=== PATIENT | female | born 1995 | race American Indian/Alaskan Native ===

== ENCOUNTER 2018-02-17 16:01 | Inpatient (IN) | payer MEDICAID ==
[2018-02-17] MEDS ORDERED: LACTATED RINGERS 1,000 ML IV ONE (22:17)
[2018-02-17] MEDS ORDERED: MINERAL OIL PO PRN (23:35)
[2018-02-17] MEDS ORDERED: SUBLIMAZE IV PRN (23:35)
[2018-02-17] MEDS ORDERED: STADOL IV PRN (23:35)
[2018-02-17] MEDS ORDERED: XYLOCAINE 2% INFILTRATI ONE (23:35)
[2018-02-17] MEDS ORDERED: BRETHINE IVP PRN (23:35)
[2018-02-17] MEDS ORDERED: ZOFRAN IV PRN (23:35)
[2018-02-17] MEDS ORDERED: BRETHINE SUB-Q PRN (23:35)
[2018-02-17] MEDS ORDERED: POLYCILLIN/NS 2 GM/100 ML 2 GM/100 ML BAG IV ONE (23:35)
--- NOTE | 2018-02-17 23:44 | History and Physical Report ---
History of Present Illness Date of examination: 02/17/18 Date of admission: 02/17/18 20:00 Chief complaint: SROM History of present illness: Pt is a 22yo BF EDC 02/12/18; EGA 40 5/7 weeks presents to L&D complaining of SROM meconium fluid @ 10am followed by irregular contractions. She did not receive care with this , but seems to have a Psychotic disorder that is untreated. Past History Past Medical History: no pertinent history Past Surgical History: no surgical history Family/Genetic History: none Social history: no significant social history, single - Obstetrical History Expected Date of Delivery: 02/12/18 Actual Gestation: 40 Week(s) 6 Day(s) : 1 Medications and Allergies Allergies Allergy/AdvReac Type Severity Reaction Status Date / Time No Known Allergies Allergy Unverified 02/17/18 16:20 Review of Systems All systems: negative - Vital Signs Vital signs: Vital Signs Pulse Pulse Ox 100 H 100 02/17/18 16:37 02/17/18 16:37 Temp Pulse Resp BP Pulse Ox 97.3 F L 83 18 112/60 100 02/17/18 23:29 02/17/18 23:38 02/17/18 23:29 02/17/18 23:13 02/17/18 23:38 - Physical Exam Breasts: Positive: deferred Cardiovascular: Regular rate Lungs: Positive: Clear to auscultation Abdomen: Positive: normal appearance Uterus: Positive: enlarged Extremities: Positive: normal - Obstetrical FHR: category 1 Uterine Contraction Monitor Mode: External Results Result Diagrams: 02/18/18 00:50 All other labs normal. Assessment and Plan - Patient Problems (1) 40 weeks gestation of Onset Date: 02/17/18 Current Visit: Yes Status: Acute Plan to address problem: A: IUP @ 40 5/7 weeks in labor No care Unknown GBS Psychotic disorder P: Admit to L&D for expectant vaginal delivery Obtain labs IV Ampicillin Obtain Psych consultation
[2018-02-17] MEDS ORDERED: LACTATED RINGERS 1,000 ML IV SCH (23:45)
[2018-02-17] MEDS ORDERED: PITOCin/NS 20 UNIT/1000ML DRIP 20 UNITS/1,000 ML BAG IV SCH (23:45)
[2018-02-17] MEDS ORDERED: PITOCin/NS 30 UNIT/500ML 30 UNITS/500 ML BAG IV SCH ×2 (23:45)
[2018-02-18 01:14] LABS: Hematocrit 28.9 % (30.3-42.9); Hemoglobin 9.2 gm/dl (10.1-14.3); Mean Corpuscular HGB Conc 32 % (30-34); Mean Corpuscular Volume 79 fl (79-97); Platelet Count 269 K/mm3 (140-440); Red Blood Count 3.68 M/mm3 (3.65-5.03); Red Cell Distribution Width 15.6 % (13.2-15.2)
[2018-02-18 01:16] LABS: Mean Corpuscular Hemoglobin 25 pg (28-32)
[2018-02-18 01:38] LABS: Hepatitis C Virus Antibody Non-Reactive (NonReactive)
[2018-02-18 02:16] LABS: Rubella IgG Antibody Immune (Immune)
[2018-02-18 02:23] LABS: Anisocytosis Few; Basophils % (Manual) 0 % (0.0-1.8); Eosinophils % (Manual) 0 % (0.0-4.3); Hypochromasia 1+; Platelet Estimate Consistent w Auto; Total Cells Counted 100
[2018-02-18] MEDS ORDERED: XYLOCAINE MPF 2% ONE ×6 (03:32→03:35)
[2018-02-18] MEDS ORDERED: XYLOCAINE 2% INFILTRATI ONE (03:32)
[2018-02-18] MEDS ORDERED: AMPICILLIN/NS 1 GM/50 ML 1 GM/50 ML BAG IV SCH (03:37)
--- NOTE | 2018-02-18 03:49 | Procedure Note ---
OB Delivery Note - Delivery Date of Delivery: 02/18/18 Surgeon: TIAGO ALEXANDER Estimated blood loss: other (150cc) - Vaginal Delivery presentation: vertex Delivery position: OA Intrapartum events: no care, PROM->1hr before delivery, meconium Delivery induction: none Delivery augmentation: rupture of membranes Delivery monitor: external FHT, external uterine Route of delivery: vacuum extraction Indicators for instrumentation: maternal exhaustion Delivery placenta: spontaneous Delivery cord: 3 umbilical vessels Episiotomy: none Delivery laceration: 2nd degree Delivery repair: vicryl Anesthesia: none Delivery comments: Infant delivered OA with the aid of a vacuum, 3 pulls, 1 pop-off. Infant handed to awaiting Peds/RT in attendance. Cord cut by GrandMa. - Infant A at 1 minute: 8 at 5 minutes: 9 Infant Gender: Male (3547gms)
[2018-02-18] MEDS ORDERED: LANSINOH TP PRN (03:50)
[2018-02-18] MEDS ORDERED: TYLENOL PO PRN (03:50)
[2018-02-18] MEDS ORDERED: PHENERGAN PR PRN (03:50)
[2018-02-18] MEDS ORDERED: PHENERGAN PO PRN (03:50)
[2018-02-18] MEDS ORDERED: DULCOLAX PR PRN (03:50)
[2018-02-18] MEDS ORDERED: NORCO 5/325 PO PRN (03:50)
[2018-02-18] MEDS ORDERED: TUCKS PAD TP PRN (03:50)
[2018-02-18] MEDS ORDERED: MILK OF MAGNESIA PO PRN (03:50)
[2018-02-18] MEDS ORDERED: ZOFRAN IV PRN (03:50)
[2018-02-18] MEDS ORDERED: BENADRYL PO PRN (03:50)
[2018-02-18] MEDS ORDERED: PITOCin/NS 20 UNIT/1000ML DRIP 20 UNITS/1,000 ML BAG IV SCH (04:00)
[2018-02-18] MEDS ORDERED: SODIUM CHLORIDE FLUSH SYRINGE 10 ML IV NR (04:00)
[2018-02-18] MEDS: ATIVAN IV PRN ×2 (05:05→06:15)
[2018-02-18] MEDS: MOTRIN PO SCH ×2 (06:36→18:05)
[2018-02-18 16:14] LABS: Hematocrit 22.6 % (30.3-42.9); Hemoglobin 7.3 gm/dl (10.1-14.3)
[2018-02-18] MEDS: FEOSOL PO SCH (17:47)
[2018-02-18] MEDS: PRENATAL VITAMIN PO SCH (17:47)
[2018-02-18] MEDS: COLACE PO SCH (17:47)
[2018-02-18 19:09] LABS: Bilirubin,Urine NEG (Negative); Blood,Urine LG (Negative); Color,Urine Yellow (Yellow); Mucus,Urine FEW /HPF; Protein,Urine <15 mg/dL mg/dL (Negative); Urobilinogen,Urine < 2.0 mg/dL (<2.0)
[2018-02-18 19:12] LABS: Amphetamine Screen,Urine PRESUMPTIVE NEGATIVE; Benzodiazepines Screen,Urine PRESUMPTIVE NEGATIVE; Cannabinoid Screen,Urine PRESUMPTIVE NEGATIVE; Cocaine Screen,Urine PRESUMPTIVE NEGATIVE; Methadone Screen,Urine PRESUMPTIVE NEGATIVE; Opiate Screen,Urine PRESUMPTIVE NEGATIVE
[2018-02-19] MEDS: MOTRIN PO SCH ×3 (02:13→17:47)
[2018-02-19] MEDS ORDERED: BOOSTRIX IM ONE (06:00)
[2018-02-19] MEDS ORDERED: M-M-R II VACCINE SUB-Q ONE (06:00)
--- NOTE | 2018-02-19 06:57 | Progress Note ---
Assessment and Plan - Patient Problems (1) 40 weeks gestation of Onset Date: 02/17/18 Current Visit: Yes Status: Resolved (2) (normal spontaneous vaginal delivery) Onset Date: 02/19/18 Current Visit: Yes Status: Resolved Plan to address problem: A: S/P - PPD #1 Doing well Asymptomatic anemia - stable P: Awaiting Psych consultation Subjective - Subjective Date of service: 02/19/18 Principal diagnosis: s/p - PPD #1 Interval history: Pt is feeling well without complaints. Bleeding improved. Patient reports: appetite normal, voiding normally, pain well controlled, flatus , ambulating normally, no dizzy ambulation, no nauseated : doing well, bottle feeding Objective - Vital Signs Latest vital signs: Vital Signs Temp Pulse Resp BP BP Pulse Ox 02/19/18 02:13 18 02/19/18 00:28 97.3 F L 69 18 97/57 99 02/18/18 17:39 98.2 F 91 H 20 104/65 02/18/18 09:25 97.5 F L 100 H 18 - Exam Breasts: Present: deferred Cardiovascular: Present: Regular rate Lungs: Present: Clear to auscultation Abdomen: Present: normal appearance, soft Uterus: Present: normal, firm, fundal height below umbilicus Extremities: Present: normal - Labs Labs: Abnormal lab results 02/18/18 02/18/18 Range/Units 15:53 18:39 Hgb 7.3 L (10.1-14.3) gm/dl Hct 22.6 L D (30.3-42.9) % Urine WBC (Auto) 30.0 H (0.0-6.0) /HPF Laboratory Tests 02/17/18 02/18/18 02/18/18 00:50 00:50 00:50 WBC 16.0 H RBC 3.68 Hgb 9.2 L Hct 28.9 L MCV 79 MCH 25 L MCHC 32 RDW 15.6 H Plt Count 269 Add Manual Diff Complete Total Counted 100 Seg Neuts % (Manual) 96.0 H Band Neutrophils % 0 Lymphocytes % (Manual) 2.0 L Reactive Lymphs % (Man) 0 Monocytes % (Manual) 2.0 Eosinophils % (Manual) 0 Basophils % (Manual) 0 Metamyelocytes % 0 Myelocytes % 0 Promyelocytes % 0 Blast Cells % 0 Nucleated RBC % Not Reportable Seg Neutrophils # Man 15.4 H Band Neutrophils # 0.0 Lymphocytes # (Manual) 0.3 L Abs React Lymphs (Man) 0.0 Monocytes # (Manual) 0.3 Eosinophils # (Manual) 0.0 Basophils # (Manual) 0.0 Metamyelocytes # 0.0 Myelocytes # 0.0 Promyelocytes # 0.0 Blast Cells # 0.0 WBC Morphology Not Reportable Hypersegmented Neuts Not Reportable Hyposegmented Neuts Not Reportable Hypogranular Neuts Not Reportable Smudge Cells Not Reportable Toxic Granulation Not Reportable Toxic Vacuolation Not Reportable Dohle Bodies Not Reportable Pelger-Huet Anomaly Not Reportable Jarrod Rods Not Reportable Platelet Estimate Consistent w auto Clumped Platelets Not Reportable Plt Clumps, EDTA Not Reportable Large Platelets Not Reportable Giant Platelets Not Reportable Platelet Satelliting Not Reportable Plt Morphology Comment Not Reportable RBC Morphology Not Reportable Dimorphic RBCs Not Reportable Polychromasia Not Reportable Hypochromasia 1+ Poikilocytosis Not Reportable Anisocytosis Few Microcytosis Few Macrocytosis Not Reportable Spherocytes Not Reportable Pappenheimer Bodies Not Reportable Sickle Cells Not Reportable Target Cells Not Reportable Tear Drop Cells Not Reportable Ovalocytes Not Reportable Helmet Cells Not Reportable [place] Bodies Not Reportable [place] Rings Not Reportable [place] Cells Not Reportable Bite Cells Not Reportable Crenated Cell Not Reportable Elliptocytes Not Reportable Acanthocytes (Spur) Not Reportable Rouleaux Not Reportable Hemoglobin C Crystals Not Reportable Schistocytes Not Reportable Malaria parasites Not Reportable Sickle Cell Screen Negative Justen Bodies Not Reportable Hem Pathologist Commnt No Urine Color Urine Turbidity Urine pH Ur Specific [place] Urine Protein Urine Glucose (UA) Urine Ketones Urine Blood Urine Nitrite Urine Bilirubin Urine Urobilinogen Ur Leukocyte Esterase Urine WBC (Auto) Urine RBC (Auto) U Epithel Cells (Auto) Urine Mucus Urine Opiates Screen Urine Methadone Screen Ur Barbiturates Screen Ur Phencyclidine Scrn Ur Amphetamines Screen U Benzodiazepines Scrn Urine Cocaine Screen U Marijuana (THC) Screen Drugs of Abuse Note RPR Hep Bs Antigen Hepatitis C Antibody Non-reactive HIV 1&2 Antibody Rapid Non react HIV P24 Antigen Non react Rubella IgG Antibody Immune Blood Type Antibody Screen 02/18/18 02/18/18 02/18/18 00:50 00:50 00:50 WBC RBC Hgb Hct MCV MCH MCHC RDW Plt Count Add Manual Diff Total Counted Seg Neuts % (Manual) Band Neutrophils % Lymphocytes % (Manual) Reactive Lymphs % (Man) Monocytes % (Manual) Eosinophils % (Manual) Basophils % (Manual) Metamyelocytes % Myelocytes % Promyelocytes % Blast Cells % Nucleated RBC % Seg Neutrophils # Man Band Neutrophils # Lymphocytes # (Manual) Abs React Lymphs (Man) Monocytes # (Manual) Eosinophils # (Manual) Basophils # (Manual) Metamyelocytes # Myelocytes # Promyelocytes # Blast Cells # WBC Morphology Hypersegmented Neuts Hyposegmented Neuts Hypogranular Neuts Smudge Cells Toxic Granulation Toxic Vacuolation Dohle Bodies Pelger-Huet Anomaly Jarrod Rods Platelet Estimate Clumped Platelets Plt Clumps, EDTA Large Platelets Giant Platelets Platelet Satelliting Plt Morphology Comment RBC Morphology Dimorphic RBCs Polychromasia Hypochromasia Poikilocytosis Anisocytosis Microcytosis Macrocytosis Spherocytes Pappenheimer Bodies Sickle Cells Target Cells Tear Drop Cells Ovalocytes Helmet Cells [place] Bodies [place] Rings Aayush Cells Bite Cells Crenated Cell Elliptocytes Acanthocytes (Spur) Rouleaux Hemoglobin C Crystals Schistocytes Malaria parasites Sickle Cell Screen Justen Bodies Hem Pathologist Commnt Urine Color Urine Turbidity Urine pH Ur Specific [place] Urine Protein Urine Glucose (UA) Urine Ketones Urine Blood Urine Nitrite Urine Bilirubin Urine Urobilinogen Ur Leukocyte Esterase Urine WBC (Auto) Urine RBC (Auto) U Epithel Cells (Auto) Urine Mucus Urine Opiates Screen Urine Methadone Screen Ur Barbiturates Screen Ur Phencyclidine Scrn Ur Amphetamines Screen U Benzodiazepines Scrn Urine Cocaine Screen U Marijuana (THC) Screen Drugs of Abuse Note RPR Nonreactive Hep Bs Antigen Non-reactive Hepatitis C Antibody HIV 1&2 Antibody Rapid HIV P24 Antigen Rubella IgG Antibody Blood Type A POSITIVE Antibody Screen Negative 02/18/18 02/18/18 02/18/18 15:53 18:11 18:39 WBC RBC Hgb 7.3 L Hct 22.6 L D MCV MCH MCHC RDW Plt Count Add Manual Diff Total Counted Seg Neuts % (Manual) Band Neutrophils % Lymphocytes % (Manual) Reactive Lymphs % (Man) Monocytes % (Manual) Eosinophils % (Manual) Basophils % (Manual) Metamyelocytes % Myelocytes % Promyelocytes % Blast Cells % Nucleated RBC % Seg Neutrophils # Man Band Neutrophils # Lymphocytes # (Manual) Abs React Lymphs (Man) Monocytes # (Manual) Eosinophils # (Manual) Basophils # (Manual) Metamyelocytes # Myelocytes # Promyelocytes # Blast Cells # WBC Morphology Hypersegmented Neuts Hyposegmented Neuts Hypogranular Neuts Smudge Cells Toxic Granulation Toxic Vacuolation Dohle Bodies Pelger-Huet Anomaly Jarrod Rods Platelet Estimate Clumped Platelets Plt Clumps, EDTA Large Platelets Giant Platelets Platelet Satelliting Plt Morphology Comment RBC Morphology Dimorphic RBCs Polychromasia Hypochromasia Poikilocytosis Anisocytosis Microcytosis Macrocytosis Spherocytes Pappenheimer Bodies Sickle Cells Target Cells Tear Drop Cells Ovalocytes Helmet Cells [place] Bodies [place] Rings Aayush Cells Bite Cells Crenated Cell Elliptocytes Acanthocytes (Spur) Rouleaux Hemoglobin C Crystals Schistocytes Malaria parasites Sickle Cell Screen Justen Bodies Hem Pathologist Commnt Urine Color Yellow Urine Turbidity Clear Urine pH 6.0 Ur Specific [place] 1.009 Urine Protein <15 mg/dl Urine Glucose (UA) Neg Urine Ketones Neg Urine Blood Lg Urine Nitrite Neg Urine Bilirubin Neg Urine Urobilinogen < 2.0 Ur Leukocyte Esterase Mod Urine WBC (Auto) 30.0 H Urine RBC (Auto) 0.0 U Epithel Cells (Auto) 1.0 Urine Mucus Few Urine Opiates Screen Presumptive negative Urine Methadone Screen Presumptive negative Ur Barbiturates Screen Presumptive negative Ur Phencyclidine Scrn Presumptive negative Ur Amphetamines Screen Presumptive negative U Benzodiazepines Scrn Presumptive negative Urine Cocaine Screen Presumptive negative U Marijuana (THC) Screen Presumptive negative Drugs of Abuse Note Disclamer RPR Hep Bs Antigen Hepatitis C Antibody HIV 1&2 Antibody Rapid HIV P24 Antigen Rubella IgG Antibody Blood Type Antibody Screen
[2018-02-19] MEDS: COLACE PO SCH (12:14)
[2018-02-19] MEDS: FEOSOL PO SCH (12:15)
[2018-02-19] MEDS: PRENATAL VITAMIN PO SCH (12:15)
[2018-02-19] MEDS ORDERED: DERMOPLAST TP ONE (13:13)
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
--- NOTE | 2018-02-20 11:20 | Progress Note ---
Assessment and Plan - Patient Problems (1) 40 weeks gestation of Onset Date: 02/17/18 Current Visit: Yes Status: Resolved Plan to address problem: A: S/P - PPD #2 Doing well Asymptomatic anemia - stable Unspecified psychosis - per Psych P: Medically cleared for transfer to a Psychiatric facility (2) Psychosis Onset Date: 02/20/18 Current Visit: Yes Status: Acute Qualifiers: Psychosis type: unspecified psychosis type Qualified Code(s): F29 - Unspecified psychosis not due to a substance or known physiological condition Plan to address problem: A: S/P - PPD #2 Doing well Asymptomatic anemia - stable Unspecified psychosis - per Psych P: Medically cleared for transfer to a Psychiatric facility Subjective - Subjective Date of service: 02/20/18 Principal diagnosis: s/p - PPD #2 Interval history: Pt is feeling well without complaints. Patient reports: appetite normal, voiding normally, pain well controlled, flatus , ambulating normally, no dizzy ambulation, no nauseated : doing well, bottle feeding Objective - Vital Signs Latest vital signs: Vital Signs Temp Pulse Resp BP BP Pulse Ox 02/20/18 07:56 98.4 F 73 18 95/48 99 02/20/18 01:48 97.9 F 63 18 100/55 100 02/19/18 16:56 97.9 F 69 18 93/50 Intake and Output 02/19/18 02/20/18 02/20/18 22:59 06:59 14:59 Intake Total 120 360 480 Output Total 3 Balance 120 357 480 Intake: Oral 120 360 Intake, Free Water 360 120 Output: Urine 3 Void 3 Other: Total, Intake Amount 120 360 Total, Output Amount 3 # Voids Void 0 # Bowel Movements 0 - Exam Breasts: Present: deferred Cardiovascular: Present: Regular rate Lungs: Present: Clear to auscultation Abdomen: Present: normal appearance, soft Uterus: Present: normal, firm, fundal height below umbilicus Extremities: Present: normal
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
[2018-02-20] MEDS: PRENATAL VITAMIN PO SCH (12:14)
[2018-02-20] MEDS: COLACE PO SCH ×2 (12:14→21:40)
[2018-02-20] MEDS: FEOSOL PO SCH ×2 (12:14→21:40)
[2018-02-20] MEDS: MOTRIN PO SCH ×2 (12:15→19:45)
--- NOTE | 2018-02-20 20:22 | Progress Note ---
Subjective - Reason for Consult Consult date: 02/20/18 Reason for consult: Psychiatric Follow-up Evaluation - Chief Complaint Chief complaint: " I'm good" 22yo BF EDC 02/12/18. Psychiatry was consulted to see patient because of psychosis. Today the patient is calm and cooperative with a blunted affect during the assessment. She presents guarded and evasive. She states, " I'm good. It was a lot going on. I wasn't expecting to have the baby." Patient reports that her symptoms were all related to giving . She appears as if she is minimizing her symptoms. She denies SI/HI's, A/VH's, and delusions. Per sitter patient behavior has been appropriate. Patient is refusing medications. She states, " I don't plan on taking any medication. Nothing is wrong with me. More than likely, I'm going to breast feed." Mental Status Exam - Vital signs Last Vital Signs Temp 98.5 F 02/20/18 16:35 Pulse 78 02/20/18 16:35 Resp 18 02/20/18 16:35 BP 99/44 02/20/18 16:35 Pulse Ox 100 02/20/18 16:35 - Exam Narrative exam: Mental Status Exam General Appearance: Causally Dressed-hospital gown Eye Contact: Intermittent Orientation: Alert and oriented x 4 (person, place, time, date, and situation) Attitude/Behavior: Cooperative, evasive, guarded Sensorium: Distracted Psychomotor & Musculoskeletal Activity: Ambulating Mood: "I'm good" Affect: Constricted Speech/Language: Normal rate and tone Thought Processes: Disorganized, blocking-less Thought Content: Impoverished; paranoid delusions (?) Perception: Patient denies A/V/T hallucinations Concentration/Attention: Impaired Suicidal Ideations/Plan: Patient denies. Homicidal Ideations/Plan: Patient denies. Judgment: Variable Insight: Variable to poor Assessment and Plan Impression: Unspecified Psychosis. Today the patient is calm and cooperative with a blunted affect during the assessment. UDS is negative. Appears to minimizing psychosis. DDx: Bipolar DO with psychosis, R/O Schizophrenia Recommendation/Plan: 1. Continue 1013 and gather collateral information to help determine proper treatment. 2. Once the patient is medically clear, placement for inpatient psy services will be initiated. 3. Patient educated on the risks/benefits of medications. Patient refuses medications.
[2018-02-21] MEDS: MOTRIN PO SCH ×3 (11:08→23:12)
[2018-02-21] MEDS: COLACE PO SCH ×2 (11:09→23:09)
[2018-02-21] MEDS: PRENATAL VITAMIN PO SCH (11:09)
[2018-02-21] MEDS: FEOSOL PO SCH ×2 (11:09→23:09)
--- NOTE | 2018-02-21 23:41 | Progress Note ---
Subjective - Reason for Consult Consult date: 02/21/18 Reason for consult: Psychiatric Follow-up Evaluation - Chief Complaint Chief complaint: " I'm good" 22yo BF EDC 02/12/18. Psychiatry was consulted to see patient because of psychosis. Today the patient is calm and cooperative during the assessment. Affect is somewhat inappropriate. Seen laughing/smiling inappropriately. She continues to present guarded and evasive. She appears as if she is minimizing her symptoms. She denies SI/HI's, A/VH's, and delusions. Per sitter patient behavior has been appropriate. Patient has agreed to take Risperdal. She states , " I will take the medication if it will help me." Mental Status Exam - Vital signs Last Vital Signs Temp 98.6 F 02/21/18 21:23 Pulse 69 02/21/18 21:23 Resp 16 02/21/18 21:23 BP 96/46 02/21/18 21:23 Pulse Ox 99 02/21/18 21:23 - Exam Narrative exam: Mental Status Exam General Appearance: Causally Dressed-hospital gown Eye Contact: Intermittent Orientation: Alert and oriented x 4 (person, place, time, date, and situation) Attitude/Behavior: Cooperative, evasive, guarded Sensorium: Distracted Psychomotor & Musculoskeletal Activity: Laying in bed Mood: "I'm good" Affect: Constricted Speech/Language: Normal rate and tone Thought Processes: Circumstantial Thought Content: Impoverished; Patient denies delusions Perception: Patient denies A/V/T hallucinations Concentration/Attention: Impaired Suicidal Ideations/Plan: Patient denies Homicidal Ideations/Plan: Patient denies Judgment: Variable Insight: Variable Assessment and Plan Impression: Unspecified Psychosis. Today the patient is calm and cooperative during the assessment. Appears to be laughing/smiling inappropriately. UDS is negative. Appears to minimizing psychosis. DDx: Bipolar DO with psychosis, R/O Schizophrenia Recommendation/Plan: 1. Reassess in 24 hours. Patient 1013 was rescinded by . 2. Start Risperdal 0.5mg po BID mood/psychosis. Discussed the metabolic side effects of Risperdal. 3. Patient educated on the risks/benefits of medications. Patient verbalizes full understanding. 4. Will continue to monitor psychosis, mood, sleep, appetite, compliance, and side effects.
[2018-02-22] MEDS: MOTRIN PO SCH ×2 (05:00→12:24)
[2018-02-22] MEDS ORDERED: BOOSTRIX IM ONE (06:00)
[2018-02-22] MEDS ORDERED: RisperDAL PO SCH (10:00)
[2018-02-22] MEDS: PRENATAL VITAMIN PO SCH (10:01)
[2018-02-22] MEDS: FEOSOL PO SCH (10:01)
[2018-02-22] MEDS: COLACE PO SCH (10:02)
--- NOTE | 2018-02-22 10:12 | Progress Note ---
Subjective - Reason for Consult Consult date: 02/22/18 Reason for consult: Psychiatry Follow-up - Chief Complaint Chief complaint: "I am okay" 22yo BF EDC 02/12/18. Psychiatry was consulted to see patient because of psychosis. Today the patient is calm and cooperative, but tangent during the assessment. She had to be redirected several times to keep her on topic. The patient was asked about her day, her answer was not logical. Per the notes the patient had an episode and security had to be called. Per collateral information from her mother Meghann Marie at [phone], she stated that her daughter's behavior has been erratic the past several months. She stated that the patient's sleep pattern have been off with an irritable mood. She stated that the patient have "walked off" several jobs for no reason. The patient was asked about these things, but she struggled to elaborate. The patient denies SI/ HI's and AVH's. Mental Status Exam - Vital signs Last Vital Signs Temp 98.4 F 02/22/18 08:35 Pulse 81 02/22/18 08:35 Resp 20 02/22/18 08:35 BP 97/64 02/22/18 08:35 Pulse Ox 100 02/22/18 08:35 - Exam Narrative exam: MSE: Appearance: calm, cooperative Behavior: regular eye contact Speech: regular rate and tone Mood: "okay" Affect: blunted Thought Process: tangential, disorganized Thought Content: denies SI/HI's and AVH's, paranoid Motor Activity: ambulatory Cognition: A/O x 3 Insight: poor Judgment: poor Assessment and Plan Impression: Unspecified Psychosis. Today the patient is calm and cooperative during the assessment. The patient is experiencing perceptual disturbances. UDS is negative. DDx: Bipolar DO with psychosis, R/O Schizophrenia Recommendation/Plan: Continue 1013 with placement to inpatient psy services. Continue Risperdal 0.5 mg PO BID for psychosis. Discussed possible metabolic side effects of Risperdal with the patient.
[2018-02-22 15:52] LABS: BUN/Creatinine Ratio 15; Blood Urea Nitrogen 9 mg/dL (7-17); Calcium 8.8 mg/dL (8.4-10.2); Hemolysis Index 14
[2018-02-22 19:49] VITALS: BP 107/49
== END 2018-02-22 17:02 | DRG 775 ==
LOC: TRG 16:01 → LD 20:00 → EEVIPCON 20:00 → LD 22:11 → OB 02-18 06:00
PROVIDERS: ADMIT Obstetrics & Gynecology; ATTEND Obstetrics & Gynecology
PROC: 10D07Z6 Extraction of Products of Conception, Vacuum, Via Natural or Artificial Opening (ICD-10-PCS; principal; 2018-02-18)
PROC: 0KQM0ZZ Repair Perineum Muscle, Open Approach (ICD-10-PCS; 2018-02-18)
PROC: 3E0234Z Introduction of Serum, Toxoid and Vaccine into Muscle, Percutaneous Approach (ICD-10-PCS; 2018-02-19)
DX: O77.0 Labor and delivery complicated by meconium in amniotic fluid (principal); Z3A.40 40 weeks gestation of pregnancy; Z37.0 Single live birth; Z23 Encounter for immunization; O99.344 Other mental disorders complicating childbirth; F29 Unspecified psychosis not due to a substance or known physiological condition; O70.1 Second degree perineal laceration during delivery; O90.81 Anemia of the puerperium; D64.9 Anemia, unspecified; O75.81 Maternal exhaustion complicating labor and delivery
CPT/HCPCS: 36415; 80048; 80307; 81001; 85007; 85014; 85018; 85025; 85660; 86592; 86706; 86762; 86803; 86850; 86900; 86901; 87806; J0290; J2060; J2590; J7120

== ENCOUNTER 2018-02-25 17:43 | Emergency (ER) | payer MEDICAID ==
[2018-02-25 20:03] LABS: Basophils % (Auto) 0.4 % (0.0-1.8); Eosinophils # (Auto) 0.1 K/mm3 (0.0-0.4); Eosinophils % (Auto) 1.4 % (0.0-4.3); Hematocrit 29.9 % (30.3-42.9); Hemoglobin 9.5 gm/dl (10.1-14.3); Lymphocytes # (Auto) 1.5 K/mm3 (1.2-5.4); Lymphocytes % (Auto) 19.9 % (13.4-35.0); Mean Corpuscular HGB Conc 32 % (30-34); Mean Corpuscular Volume 79 fl (79-97); Monocytes # (Auto) 0.4 K/mm3 (0.0-0.8); Monocytes % (Auto) 6.1 % (0.0-7.3); Platelet Count 381 K/mm3 (140-440); Red Blood Count 3.77 M/mm3 (3.65-5.03); Red Cell Distribution Width 16.9 % (13.2-15.2)
[2018-02-25 20:06] LABS: Mean Corpuscular Hemoglobin 25 pg (28-32)
[2018-02-25 20:20] LABS: BUN/Creatinine Ratio 25; Blood Urea Nitrogen 15 mg/dL (7-17); Calcium 9.6 mg/dL (8.4-10.2); Hemolysis Index 7
[2018-02-25] MEDS ORDERED: KEFLEX PO ONE (22:12)
--- NOTE | 2018-02-25 22:17 | Emergency Department Report ---
HPI - General Chief Complaint: Vaginal Bleeding Time Seen by Provider: 02/25/18 20:31 - HPI HPI: The patient's 22-year-old female who presents for evaluation of vaginal bleeding. She states that she has experienced some vaginal spotting since her vaginal delivery 1 week ago, and also has experienced some mild intermittent soreness of the vagina at the site of sutures placed for vaginal laceration repair. She requests to have sutures removed from vagina here in the ER, due to her intermittent discomfort. She states that she has no vaginal bleeding currently, in the vaginal bleeding resolved prior to evaluation. She also states that she has no pain currently. The patient denies fever, chills, night sweats, diarrhea, blood in the stool, dark tarry stool, dysuria, hematuria, flank pain, genital discharge, inability to pass flatus. ED Past Medical Hx - Past Medical History Hx Hypertension: No Hx Congestive Heart Failure: No Hx Diabetes: No Hx Deep Vein Thrombosis: No Hx Renal Disease: No Hx Sickle Cell Disease: No Hx Seizures: No Hx Asthma: No Hx HIV: No - Social History Smoking Status: Never Smoker Substance Use Type: None - Medications Home Medications: Home Medications Medication Instructions Recorded Confirmed Last Taken Type Ferrous Sulfate [Feosol 325 MG tab] 325 mg PO BID #60 tablet 02/20/18 Unknown Rx Ibuprofen [Motrin 600 MG tab] 600 mg PO Q6H #30 tablet 02/20/18 Unknown Rx Vit-Fe Fumar-FA [ 1 each PO QDAY #30 tablet 02/20/18 Unknown Rx Vitamin] ED Review of Systems ROS: Stated complaint: VAGINAL BLEEDING Other details as noted in HPI Constitutional: denies: fever ENT: denies: throat or neck pain Respiratory: denies: cough, shortness of breath Cardiovascular: denies: chest pain Endocrine: denies unexplained weight loss or gain Gastrointestinal: denies: abdominal pain, nausea Genitourinary: report vb and vag pain denies: dysuria Musculoskeletal: denies: leg swelling Skin: denies: rash Neurological: denies: headache Hematological/Lymphatic: denies: easy bleeding or easy bruising Psych: denies sadness or hopelessness Physical Exam - Physical Exam Vital Signs: Vital Signs 02/25/18 02/25/18 19:02 20:53 Temperature 97.6 F 97.8 F Pulse Rate 68 78 Respiratory 16 16 Rate Blood Pressure 119/62 Blood Pressure 114/64 [Right] O2 Sat by Pulse 100 98 Oximetry Physical Exam: General: well-nourished, well-developed, no acute distress Head: Normocephalic, atraumatic Eyes: normal sclera ENT: Mucous membranes are pink and moist Neck: trachea midline, neck supple, No neck stiffness, no cervical adenopathy Respiratory: Breath sounds equal bilaterally, no wheezing, rales, or rhonchi Cardio: S1 and S2 present, no murmurs, rubs, gallops, capillary refill is brisk Abdomen: Normoactive bowel sounds, soft abdomen, no tenderness Chest WALL/Back: No tenderness to palpation of the chest wall, no CVA tenderness with percussion Musc: No pitting edema Skin: No rash Neuro: no facial drooping, normal speech Psych: Normal affect ED Course Vital Signs 02/25/18 02/25/18 19:02 20:53 Temperature 97.6 F 97.8 F Pulse Rate 68 78 Respiratory 16 16 Rate Blood Pressure 119/62 Blood Pressure 114/64 [Right] O2 Sat by Pulse 100 98 Oximetry ED Medical Decision Making - Lab Data Result diagrams: 02/25/18 19:42 02/25/18 19:42 - Medical Decision Making The patient was seen and examined by myself. The patient is placed on a cardiopulmonary physical therapist and continuous pulse ox. On initial evaluation, the patient was found to be in no distress. Evaluation orders are placed. The patient declined pain medicine. Lab results were reviewed and revealed nonemergent hemoglobin RBC levels, and normal platelet levels. The patient was reevaluated and reported that their symptoms were markedly improved. The patient is stable for discharge with outpatient follow-up. The patient is given follow-up and return instructions. The patient expressed understanding and agreed with the plan. The patient is discharged in stable condition. Critical care attestation.: If time is entered above; I have spent that time in minutes in the direct care of this critically ill patient, excluding procedure time. ED Disposition Clinical Impression: Vagina bleeding, Chronic blood loss anemia Disposition: - TO HOME OR SELFCARE Is pt being admited?: No Does the pt Need Aspirin: No Condition: Stable Instructions: Bleeding (ED), Absorbable Suture Care (ED) Referrals: TIAGO ALEXANDER MD [Staff Physician] - 3-5 Days [facility] [Provider Group] - 3-5 Days Time of Disposition: 22:14
[2018-02-26 01:26] VITALS: BP 118/63
== END 2018-02-26 01:26 | disposition home or self-care (01) ==
LOC: ED 17:43
DX: N93.9 Abnormal uterine and vaginal bleeding, unspecified (principal); D50.0 Iron deficiency anemia secondary to blood loss (chronic)
CPT/HCPCS: 36415; 80048; 84703; 85025; 86850; 86900; 86901; 99285

== ENCOUNTER 2019-07-19 01:52 | Emergency (ER) | payer MEDICAID ==
[2019-07-19 03:19] LABS: Hematocrit 38.1 % (30.3-42.9); Hemoglobin 12.6 gm/dl (10.1-14.3); Mean Corpuscular HGB Conc 33 % (30-34); Mean Corpuscular Volume 91 fl (79-97); Platelet Count 322 K/mm3 (140-440); Red Cell Distribution Width 13.6 % (13.2-15.2)
[2019-07-19 03:49] LABS: BUN/Creatinine Ratio 16; Blood Urea Nitrogen 11 mg/dL (7-17); Hemolysis Index 3
[2019-07-19 04:23] LABS: Amphetamine Screen,Urine PRESUMPTIVE NEGATIVE; Benzodiazepines Screen,Urine PRESUMPTIVE NEGATIVE; Cannabinoid Screen,Urine PRESUMPTIVE NEGATIVE; Cocaine Screen,Urine PRESUMPTIVE NEGATIVE; Methadone Screen,Urine PRESUMPTIVE NEGATIVE; Opiate Screen,Urine PRESUMPTIVE NEGATIVE
[2019-07-19 04:36] VITALS: BP 130/86
[2019-07-19 04:38] LABS: Bacteria,Urine 1+ /HPF (Negative); Bilirubin,Urine NEG (Negative); Blood,Urine NEG (Negative); Color,Urine Yellow (Yellow); Mucus,Urine 2+ /HPF; Protein,Urine <15 mg/dL mg/dL (Negative)
--- NOTE | 2019-07-19 04:39 | Emergency Department Report ---
ED General Adult HPI - General Chief complaint: Psych Stated complaint: MH Time Seen by Provider: 07/19/19 02:19 Source: patient, RN notes reviewed, old records reviewed Mode of arrival: Ambulatory Limitations: No Limitations - History of Present Illness Initial comments: This is a 24-year-old female. I have not evaluated her in the past. The patient presents to the ER for general medical evaluation. The patient reports that she recently completed a 21-day program at [facility]. She was discharged, and is now subsequently homeless. Apparently, she ran out of [employer]. The patient does not know she has a formal history of seizures. The patient admits to 1 recreational alcohol shot, many hours ago. She believes that she had a seizure. She says that she was awake, and that she had some twitching. She is not sure if the twitching was in her arm, in her legs, or in her body. She did not hit her head. She says that she was awake the entire time. She denies physical pain. She is not homicidal or suicidal. She is not having hallucinations. She reports that she does not have access to guns or to firearms. In the emergency room, she was watching TV, and is now sleeping comfortably. -: This evening Improves with: none Worsens with: none Associated Symptoms: denies other symptoms - Related Data Previous Rx's Medication Instructions Recorded Last Taken Type Ferrous Sulfate [Feosol 325 MG tab] 325 mg PO BID #60 tablet 02/20/18 Unknown Rx Ibuprofen [Motrin 600 MG tab] 600 mg PO Q6H #30 tablet 02/20/18 Unknown Rx Vit-Fe Fumar-FA [ 1 each PO QDAY #30 tablet 02/20/18 Unknown Rx Vitamin] Allergies Allergy/AdvReac Type Severity Reaction Status Date / Time No Known Allergies Allergy Verified 02/25/18 19:01 ED Review of Systems ROS: Stated complaint: MH Other details as noted in HPI Constitutional: see HPI Eyes: as per HPI ENT: as per HPI Respiratory: see HPI Cardiovascular: as per HPI Endocrine: see HPI Gastrointestinal: as per HPI Genitourinary: as per HPI Musculoskeletal: as per HPI Skin: as per HPI Neurological: as per HPI Psychiatric: as per HPI Hematological/Lymphatic: as per HPI ED Past Medical Hx - Past Medical History Previous Medical History?: Yes Hx Hypertension: No Hx Congestive Heart Failure: No Hx Diabetes: No Hx Deep Vein Thrombosis: No Hx Renal Disease: No Hx Sickle Cell Disease: No Hx Seizures: Yes (not on meds.) Hx Psychiatric Treatment: Yes (bipolar) Hx Asthma: No Hx HIV: No - Surgical History Past Surgical History?: No - Social History Smoking Status: Current Every Day Smoker Substance Use Type: Alcohol - Medications Home Medications: Home Medications Medication Instructions Recorded Confirmed Last Taken Type Ferrous Sulfate [Feosol 325 MG tab] 325 mg PO BID #60 tablet 02/20/18 Unknown Rx Ibuprofen [Motrin 600 MG tab] 600 mg PO Q6H #30 tablet 02/20/18 Unknown Rx Vit-Fe Fumar-FA [ 1 each PO QDAY #30 tablet 02/20/18 Unknown Rx Vitamin] ED Physical Exam - General Limitations: No Limitations General appearance: alert, in no apparent distress - Head Head exam: Present: atraumatic, normocephalic - Eye Eye exam: Present: normal appearance, EOMI, other (Visual acuity intact to finger counting and color perception at a close distance). Absent: nystagmus - ENT ENT exam: Present: normal exam, normal orophraynx, mucous membranes moist, normal external ear exam - Neck Neck exam: Present: normal inspection, full ROM. Absent: tenderness, meningismus - Respiratory Respiratory exam: Present: normal lung sounds bilaterally. Absent: respiratory distress - Cardiovascular Cardiovascular Exam: Present: regular rate, normal rhythm, normal heart sounds. Absent: bradycardia, tachycardia, irregular rhythm, systolic murmur, diastolic murmur, rubs, gallop - GI/Abdominal GI/Abdominal exam: Present: soft. Absent: distended, tenderness, guarding, rebound, rigid, pulsatile mass - Extremities Exam Extremities exam: Present: normal inspection, full ROM, other (2+ pulses noted in the bilateral upper and lower extremities. There is no palpable cord. negative Homans sign. Muscular compartments are soft. The pelvis is stable.). Absent: pedal edema, calf tenderness - Back Exam Back exam: Present: normal inspection, full ROM. Absent: tenderness, CVA tenderness (R), CVA tenderness (L), paraspinal tenderness, vertebral tenderness - Neurological Exam Neurological exam: Present: alert, oriented X3, normal gait, other (There is no facial droop. The tongue is midline. Extraocular movements are intact bilaterally. There is 5 out of 5 strength in bilateral upper and lower extremities. Sensation is intact to light touch bilateral upper and lower extremities. There is no past-pointing. There is no pronator drift. There is normal [id number]. There is a normal gait.). Absent: motor sensory deficit - Psychiatric Psychiatric exam: Present: flat affect. Absent: homicidal ideation, suicidal ideation - Skin Skin exam: Present: warm, dry, intact, normal color. Absent: rash ED Course Vital Signs 07/19/19 04:34 Temperature 98.6 F Pulse Rate 90 Respiratory 16 Rate Blood Pressure 130/86 [Right] O2 Sat by Pulse 100 Oximetry - Reevaluation(s) Reevaluation #1: 07/19/19 04:45 Vital Signs 07/19/19 04:34 Temperature 98.6 F Pulse Rate 90 Respiratory 16 Rate Blood Pressure 130/86 [Right] O2 Sat by Pulse 100 Oximetry ED Medical Decision Making - Lab Data Result diagrams: 07/19/19 03:14 07/19/19 02:15 Lab Results 07/19/19 07/19/19 07/19/19 Range/Units 02:02 02:15 02:15 WBC (4.5-11.0) K/mm3 RBC (3.65-5.03) M/mm3 Hgb (10.1-14.3) gm/dl Hct (30.3-42.9) % MCV (79-97) fl MCH (28-32) pg MCHC (30-34) % RDW (13.2-15.2) % Plt Count (140-440) K/mm3 Sodium (137-145) mmol/L Potassium (3.6-5.0) mmol/L Chloride (98-107) mmol/L Carbon Dioxide (22-30) mmol/L Anion Gap mmol/L BUN (7-17) mg/dL Creatinine (0.7-1.2) mg/dL Estimated GFR ml/min BUN/Creatinine Ratio % Glucose (65-100) mg/dL Calcium (8.4-10.2) mg/dL Total Creatine Kinase (30-135) units/L HCG, Qual (Negative) Salicylates < 0.3 L (2.8-20.0) mg/dL Urine Opiates Screen Presumptive negative Urine Methadone Screen Presumptive negative Acetaminophen < 5.0 L (10.0-30.0) ug/mL Ur Barbiturates Screen Presumptive negative Ur Phencyclidine Scrn Presumptive negative Ur Amphetamines Screen Presumptive negative U Benzodiazepines Scrn Presumptive negative Urine Cocaine Screen Presumptive negative U Marijuana (THC) Screen Presumptive negative Plasma/Serum Alcohol (0-0.07) % 07/19/19 07/19/19 07/19/19 Range/Units 02:15 02:15 02:15 WBC (4.5-11.0) K/mm3 RBC (3.65-5.03) M/mm3 Hgb (10.1-14.3) gm/dl Hct (30.3-42.9) % MCV (79-97) fl MCH (28-32) pg MCHC (30-34) % RDW (13.2-15.2) % Plt Count (140-440) K/mm3 Sodium 140 (137-145) mmol/L Potassium 3.5 L (3.6-5.0) mmol/L Chloride 99.4 (98-107) mmol/L Carbon Dioxide 25 (22-30) mmol/L Anion Gap 19 mmol/L BUN 11 (7-17) mg/dL Creatinine 0.7 (0.7-1.2) mg/dL Estimated GFR > 60 ml/min BUN/Creatinine Ratio 16 % Glucose 96 (65-100) mg/dL Calcium 10.0 (8.4-10.2) mg/dL Total Creatine Kinase (30-135) units/L HCG, Qual Negative (Negative) Salicylates (2.8-20.0) mg/dL Urine Opiates Screen Urine Methadone Screen Acetaminophen (10.0-30.0) ug/mL Ur Barbiturates Screen Ur Phencyclidine Scrn Ur Amphetamines Screen U Benzodiazepines Scrn Urine Cocaine Screen U Marijuana (THC) Screen Plasma/Serum Alcohol < 0.01 (0-0.07) % 07/19/19 07/19/19 Range/Units 02:48 03:14 WBC 10.3 (4.5-11.0) K/mm3 RBC 4.20 (3.65-5.03) M/mm3 Hgb 12.6 (10.1-14.3) gm/dl Hct 38.1 (30.3-42.9) % MCV 91 (79-97) fl MCH 30 (28-32) pg MCHC 33 (30-34) % RDW 13.6 (13.2-15.2) % Plt Count 322 (140-440) K/mm3 Sodium (137-145) mmol/L Potassium (3.6-5.0) mmol/L Chloride (98-107) mmol/L Carbon Dioxide (22-30) mmol/L Anion Gap mmol/L BUN (7-17) mg/dL Creatinine (0.7-1.2) mg/dL Estimated GFR ml/min BUN/Creatinine Ratio % Glucose (65-100) mg/dL Calcium (8.4-10.2) mg/dL Total Creatine Kinase 106 (30-135) units/L HCG, Qual (Negative) Salicylates (2.8-20.0) mg/dL Urine Opiates Screen Urine Methadone Screen Acetaminophen (10.0-30.0) ug/mL Ur Barbiturates Screen Ur Phencyclidine Scrn Ur Amphetamines Screen U Benzodiazepines Scrn Urine Cocaine Screen U Marijuana (THC) Screen Plasma/Serum Alcohol (0-0.07) % Temperature 98.2 F degrees Heart rate 108 bpm, now 80 bpm Blood pressure 120/77 mm hg Saturating 99% on room air Respirations 18/min - EKG Data -: EKG Interpreted by Ia EKG shows normal: sinus rhythm Rate: normal - EKG Data Interpretation: normal EKG 07/19/19 04:39 Sinus rhythm, 80 bpm, normal axis, QTC 457 ms, high left ventricular voltage, motion artifact Not consistent with ST elevation myocardial infarction. - Medical Decision Making Differential diagnosis, including but not limited to: Homelessness, disorganized behavior, Case management patient, seizure, pseudoseizure, secondary gain Assessment and plan: 24-year-old female who is alert and oriented x3, clinically sober, pleasant, calm and cooperative, not homicidal, not suicidal, does not meet 1013 criteria or involuntary hold criteria. Her physical examination is unremarkable. GCS 15. Walking with a steady gait. Not intoxicated at this time. Screening laboratory studies unremarkable. Was watching TV in the emergency room, and is now sleeping comfortably. No seizure-like activity has been noted. The patient does not appear to have an emergent medical condition at this time. The patient does does not appear to have an emergent psychiatric condition at this time. She will be discharged, outpatient case management consultation will be requested, and she will be provided with outpatient reso urces for primary care follow-up. Critical care attestation.: If time is entered above; I have spent that time in minutes in the direct care of this critically ill patient, excluding procedure time. ED Disposition Clinical Impression: General medical examination Disposition: DC-01 TO HOME OR SELFCARE Is pt being admited?: No Does the pt Need Aspirin: No Condition: Stable Additional Instructions: Do not drive or operate motor vehicles for the next 6 months, or until cleared to do so by her primary care doctor. Follow-up with a primary care doctor within the next 2 weeks. Follow-up with a psychiatrist within the next 2 weeks. Avoid consumption of alcohol, and recreational drugs. Return to the emergency room right away with new, worsened or different symptoms, or symptoms not present on the initial emergency room evaluation. Referrals: MOISES HOLLOWAY MD [Primary Care Provider] - 3-5 Days [facility] [Provider Group] - 3-5 Days [facility] [Provider Group] - 3-5 Days [facility] [Outside] - 3-5 Days
== END 2019-07-19 07:00 | disposition home or self-care (01) ==
LOC: ED 01:52 → EEVIPCON 01:52 → ED 07:00
DX: Z00.00 Encounter for general adult medical examination without abnormal findings (principal); Z79.899 Other long term (current) drug therapy
CPT/HCPCS: 36415; 80048; 80307; 80320; 81001; 82550; 84703; 85027; 93005; 93010; G0480

== ENCOUNTER 2021-05-17 15:24 | Emergency (ER) | payer MEDICAID ==
[2021-05-17 15:32] VITALS: BP 126/82
== END 2021-05-17 15:30 | disposition left against medical advice (07) ==
LOC: ED 15:24
DX: Z76.0 Encounter for issue of repeat prescription (principal); Z53.21 Procedure and treatment not carried out due to patient leaving prior to being seen by health care provider